=== PATIENT | male | born 1960 | race Caucasian/White ===

== ENCOUNTER 2020-07-15 15:11 | Observation (INO) ==
[2020-07-15] MEDS ORDERED: 0.9 % Sodium Chloride 1,000 ML IVC ONE (15:43)
[2020-07-15] MEDS ORDERED: *HR* HYDROmorphone (PF) 1 MG/ML SYRINGE IVP ONE (15:44)
[2020-07-15] MEDS ORDERED: Ondansetron 4 MG/2 ML VIAL IVP ONE (15:44)
[2020-07-15 16:09] LABS: Basophils % 0.3 %; Eosinophils # 0.1 K/mcL (0.0-0.6); Eosinophils % 1.1 %; Hemoglobin 15.6 g/dL (12.9-16.9); Immature Granulocytes % 0.3 % (0-4); Lymphocytes # 2.2 K/mcL (0.6-4.6); Lymphocytes % 18.3 %; Mean Corpuscular HGB Conc 35.5 g/dL (31.6-35.5); Mean Corpuscular Hemoglobin 32.4 pg (28.0-33.3); Mean Corpuscular Volume 91.5 fL (83.0-100.0); Mean Platelet Volume 10.5 fL (9.4-12.4); Monocytes # 0.8 K/mcL (0.0-1.3); Neutrophils # 8.7 K/mcL (1.6-8.9); Platelet Count 209 K/mcL (140-400); Red Blood Count 4.81 M/mcL (4.19-5.50); Red Cell Distribution Width 11.7 % (11.5-14.5); White Blood Count 11.9 K/mcL (4.3-11.1)
[2020-07-15 16:25] LABS: Alanine Aminotransferase 14 Units/L (7-52); Albumin 4.3 g/dL (3.5-5.7); Albumin/Globulin Ratio 1.5 (1.1-2.2); Alkaline Phosphatase 90 Units/L (34-104); Aspartate Amino Transferase 17 Units/L (13-39); BUN/Creatinine Ratio 12 (6-26); Bilirubin,Direct 0.2 mg/dL (0.0-0.2); Bilirubin,Indirect 0.8 mg/dL (0.0-1.0); Blood Urea Nitrogen 15 mg/dL (6-20); Carbon Dioxide 25 mEq/L (23-29); Chloride 101 mEq/L (98-107); Globulin 2.9 g/dL (2.4-3.5); Glucose 101 mg/dL (70-105); Osmolality,Calculated 281 (280-300); Potassium 3.8 mEq/L (3.5-5.1); Sodium 135 mEq/L (136-145); Total Protein 7.2 g/dL (6.4-8.9); eGFR For African Americans > 60 (> 60); eGFR For Non-African Americans 57 (> 60)
[2020-07-15] MEDS ORDERED: Naloxone 0.4 MG/ML INJ IVP PRN (16:39)
[2020-07-15] MEDS ORDERED: Morphine Sulfate 2 MG/ML SYRINGE IVP PRN (16:40)
[2020-07-15] MEDS ORDERED: Acetaminophen 325 MG TABLET PO PRN (16:43)
[2020-07-15 17:20] LABS: Bilirubin,Urine Negative (Negative); Blood,Urine Small (Negative); Clarity,Urine Clear (Clear); Color,Urine Light-Yellow (Yellow); Glucose,Urine (UA) Normal (Normal); Ketones,Urine 10 mg/dL (Negative); Leukocyte Esterase,Urine Negative (Negative); Mucus,Urine Few per lpf (None-Few); Nitrite,Urine Negative (Negative); Protein,Urine Negative (Neg-Trace); Specific Gravity,Urine 1.016 (1.010-1.025); Urobilinogen,Urine Normal (Normal); WBC,Urine 0-3 per hpf (0-3)
[2020-07-15] MEDS: *HR* OxyCODONE/APAP 5/325 TABLET PO PRN (17:55)
[2020-07-15] MEDS: 0.9 % Sodium Chloride 1,000 ML IVC SCH (17:56)
[2020-07-15] MEDS: Sucralfate 1 GM TABLET PO SCH (20:32)
[2020-07-15] MEDS: *HR* HYDROmorphone 2 MG/ML SYRINGE IVP PRN (20:32)
[2020-07-15] MEDS: Ondansetron 4 MG/2 ML VIAL IVP PRN (23:23)
[2020-07-16] MEDS: 0.9 % Sodium Chloride 1,000 ML IVC SCH ×2 (00:43→07:31)
[2020-07-16] MEDS: *HR* OxyCODONE/APAP 5/325 TABLET PO PRN ×2 (00:46→09:45)
[2020-07-16 03:30] LABS: Basophils % 0.2 %; Eosinophils # 0.1 K/mcL (0.0-0.6); Eosinophils % 0.9 %; Hematocrit 39.7 % (37.5-50.1); Hemoglobin 13.4 g/dL (12.9-16.9); Immature Granulocytes % 0.3 % (0-4); Immature Platelets 10.5 % (1.1-6.1); Lymphocytes # 1.6 K/mcL (0.6-4.6); Lymphocytes % 15.7 %; Mean Corpuscular HGB Conc 33.8 g/dL (31.6-35.5); Mean Corpuscular Volume 94.7 fL (83.0-100.0); Monocytes # 0.6 K/mcL (0.0-1.3); Platelet Count 135 K/mcL (140-400); Red Blood Count 4.19 M/mcL (4.19-5.50); Red Cell Distribution Width 11.9 % (11.5-14.5); Segmented Neutrophils % 76.9 %; White Blood Count 10.3 K/mcL (4.3-11.1)
[2020-07-16 03:47] LABS: BUN/Creatinine Ratio 12 (6-26); Blood Urea Nitrogen 13 mg/dL (6-20); Calcium 7.9 mg/dL (8.6-10.3); Carbon Dioxide 23 mEq/L (23-29); Chloride 106 mEq/L (98-107); Glucose 150 mg/dL (70-105); Magnesium 2.2 mg/dL (1.6-2.6); Osmolality,Calculated 283 (280-300); Phosphorous 2.3 mg/dL (2.7-4.5); Potassium 3.9 mEq/L (3.5-5.1); Sodium 135 mEq/L (136-145); eGFR For African Americans > 60 (> 60); eGFR For Non-African Americans > 60 (> 60)
[2020-07-16 03:51] LABS: Neutrophils # 7.9 K/mcL (1.6-8.9)
[2020-07-16 03:52] LABS: Platelet Estimate Slight Decrease (Normal)
[2020-07-16] MEDS: *HR* HYDROmorphone 2 MG/ML SYRINGE IVP PRN (05:23)
[2020-07-16] MEDS: Ondansetron 4 MG/2 ML VIAL IVP PRN (07:29)
[2020-07-16] MEDS: Sucralfate 1 GM TABLET PO SCH ×2 (07:31→21:16)
[2020-07-16 07:54] LABS: Adenovirus Not Detected (Not Detect); Bordetella Pertussis Not Detected (Not Detect); Chlamydophila pneumoniae Not Detected (Not Detect); Coronavirus 229E Not Detected (Not Detect); Coronavirus HKU1 Not Detected (Not Detect); Coronavirus NL63 Not Detected (Not Detect); Coronavirus OC43 Not Detected (Not Detect); Human Metapneumovirus Not Detected (Not Detect); Human Rhinovirus/Enterovirus Not Detected (Not Detect); Influenza A Subtype 2009 H1 Not Detected (Not Detect); Influenza B Not Detected (Not Detect); Mycoplasma pneumoniae Not Detected (Not Detect); Parainfluenza Virus 1 Not Detected (Not Detect); Parainfluenza Virus 2 Not Detected (Not Detect); Parainfluenza Virus 3 Not Detected (Not Detect); Parainfluenza Virus 4 Not Detected (Not Detect); Respiratory Syncytial Virus Not Detected (Not Detect); SARS-CoV-2 Not Detected (Not Detect)
[2020-07-16] MEDS ORDERED: Ketorolac 30 MG/ML VIAL IVP PRN ×2 (11:20→17:57)
[2020-07-16] MEDS ORDERED: *HR* HYDROmorphone 2 MG/ML SYRINGE IVP PRN ×2 (11:24→17:57)
[2020-07-16] MEDS ORDERED: 0.9 % Sodium Chloride 1,000 ML IVC SCH (11:30)
[2020-07-16] MEDS ORDERED: diazePAM 10 MG/2 ML SYRINGE IVP ONE (12:09)
[2020-07-16] MEDS ORDERED: Ondansetron 4 MG/2 ML VIAL IVP PRN ×2 (15:05→17:57)
[2020-07-16] MEDS ORDERED: Albuterol 2.5 MG/3 ML NEBULIZER IH PRN (15:05)
[2020-07-16] MEDS ORDERED: Naloxone 0.4 MG/ML INJ IVP PRN ×2 (15:05→17:57)
[2020-07-16] MEDS ORDERED: *HR* FentaNYL (PF) 100 MCG/2 ML VIAL IVP PRN (15:05)
[2020-07-16] MEDS ORDERED: Nitroglycerin 0.4 MG TAB.SUBL SL PRN (15:05)
[2020-07-16] MEDS ORDERED: *HR* HYDROmorphone PF 0.5 MG/0.5 ML SYRINGE IVP PRN (15:05)
[2020-07-16] MEDS ORDERED: *HR* Midazolam HCl 2 MG/2 ML VIAL ONE (15:19)
[2020-07-16] MEDS ORDERED: Lidocaine -MPF 2% 2 ML VIAL ONE ×2 (15:19→15:20)
[2020-07-16] MEDS ORDERED: *HR* Propofol 200 MG/20 ML VIAL IVP ONE (15:20)
[2020-07-16] MEDS ORDERED: EPHEDrine 50 MG/ML VIAL ONE (15:52)
[2020-07-16] MEDS ORDERED: Furosemide 40 MG/4 ML VIAL ONE (16:33)
[2020-07-16] MEDS ORDERED: *HR* Belladonna Alkaloids/Opium 30 MG RECTAL SUPPOSITORY RC ONE (16:49)
[2020-07-16] MEDS ORDERED: Isovue-300 50ML VIAL ONE (16:50)
[2020-07-16] MEDS ORDERED: Acetaminophen IV 1,000 MG/100 ML BAG IVPB ONE (16:50)
[2020-07-16] MEDS ORDERED: *HR* HYDROcodone/Acet 5/325 mg TABLET PO PRN (17:57)
[2020-07-16] MEDS ORDERED: Acetaminophen 325 MG TABLET PO PRN (17:57)
[2020-07-16] MEDS ORDERED: *HR* Belladonna Alkaloids/Opium 60 MG RECTAL SUPPOSITORY RC PRN (17:57)
[2020-07-17 07:05] VITALS: BP 131/89
[2020-07-17] MEDS: Sucralfate 1 GM TABLET PO SCH (08:47)
[2020-07-17] MEDS ORDERED: NON-FORMULARY MEDICATION 1 EACH EACH (Pantoprazole Sodium [Protonix] 40 MG Tablet.Dr) PO SCH (09:00)
== END 2020-07-17 10:00 | disposition home or self-care (01) ==
LOC: EMEROOARM 15:11 → 3BNU 15:11 → SUATTDRO 16:42 → 3BNU 17:45
PROVIDERS: ADMIT Internal Medicine; ATTEND Internal Medicine